=== PATIENT | female | born 1980 | race Two or more races ===

== ENCOUNTER → 2019-03-07 | Outpatient (CLI) | payer OTHER ==
[~2019-03-07] MED LIST: DICLOFENAC SODI50 MG PO; NEURONTIN300 MG
== END | disposition home or self-care (01) ==
LOC: SONOGRAMA 14:00 → MAMO-SONO 14:15
DX: Z00.8 Encounter for other general examination (principal)

== ENCOUNTER 2020-11-23 15:58 | Outpatient (CLI) | payer OTHER | END 2020-11-23 16:04 | disposition home or self-care (01) | LOC: RAD 15:58 → EDSEX 15:58 → RAD 16:04 → MAMO-SONO 12-03 08:30 | PROVIDERS: ATTEND Internal Medicine Infectious Disease | DX: S36.029A Unspecified contusion of spleen, initial encounter (principal); S30.1XXA Contusion of abdominal wall, initial encounter; S20.213A Contusion of bilateral front wall of thorax, initial encounter ==

== ENCOUNTER 2025-02-14 06:21 | Day surgery (SDC) | payer OTHER ==
[2025-02-14] MEDS ORDERED: MIDAZOLAM HCL 2 MG/2 ML VIAL IV ONE (09:30)
[2025-02-14] MEDS ORDERED: DIPHENHYDRAMINE HCL 50 MG/ML VIAL 1ML IV ONE (09:30)
[2025-02-14] MEDS ORDERED: fentaNYL CITRATE 50 MCG/ML AMPUL IV PUSH ONE (09:30)
== END 2025-02-14 11:50 | disposition home or self-care (01) ==
LOC: AMB-ENDOS 06:21
PROVIDERS: ATTEND Colon & Rectal Surgery
DX: D12.2 Benign neoplasm of ascending colon (principal); K57.32 Diverticulitis of large intestine without perforation or abscess without bleeding; K57.30 Diverticulosis of large intestine without perforation or abscess without bleeding; K63.5 Polyp of colon; Z88.8 Allergy status to other drugs, medicaments and biological substances; K62.5 Hemorrhage of anus and rectum